=== PATIENT | female | born 1930 | race Caucasian/White ===

== ENCOUNTER → 2017-12-15 | Outpatient (CLI) | payer OTHER | LOC: BMCIMAGING 11:03 | PROVIDERS: ATTEND Internal Medicine | DX: R55 Syncope and collapse (principal); R07.89 Other chest pain ==

== ENCOUNTER 2018-10-10 17:00 | Inpatient (IN) | payer OTHER ==
--- NOTE | 2018-10-10 17:20 | EDPHY ---
H & P Time Seen by Provider: 10/10/18 17:15 HPI/ROS: CHIEF COMPLAINT: Fatigue, weakness, abnormal electrolytes HISTORY OF PRESENT ILLNESS: Patient is an 88-year-old female with a history of lymphoma in remission who presents to the emergency department with abnormal lab studies. Per report, the patient had a routine visit with Dr. Clayton. She has been seen Dr. Clayton since she was diagnosed with lymphoma years ago. Laboratory studies were done as part of the evaluation. She was noted to be hyponatremic and sent to the emergency department. Patient states she also feels fatigued and more tired than normal. She denies chest pain or shortness of breath. No nausea or vomiting. No abdominal pain. REVIEW OF SYSTEMS: 10 systems were reveiwed and are negative with the exception of the elements mentioned in the history of present illness. Past Medical/Surgical History: Includes hypertension, lymphoma, thyroid disease, MALT, cryoglobulinemia Smoking Status: Former smoker Physical Exam: GENERAL: No acute distress, alert. HEENT: Eyes normal to inspection, normal pharynx, no signs of dehydration. NECK: Normal, supple. RESPIRATORY: Clear to auscultation bilaterally, no rales, rhonchi or wheezing. CVS: Regular rate and rhythm, no rubs, murmurs, or gallops. ABDOMEN: Soft, nontender, nondistended, no organomegaly. BACK: Normal to inspection, no CVA tenderness. SKIN: Normal color, no rash, warm, dry. No pallor. EXTREMITIES: No pedal edema, no calf tenderness, no Homans sign or cords, no joint swelling. NEURO/PSYCH: Alert and oriented, normal mood and affect, normal motor sensory exam. Constitutional: Initial Vital Signs Temperature (C) 36.7 C 10/10/18 17:08 Heart Rate 82 10/10/18 17:08 Respiratory Rate 18 10/10/18 17:08 Blood Pressure 193/110 H 10/10/18 17:08 O2 Sat (%) 93 10/10/18 17:08 O2 Delivery Mode Room Air Allergies/Adverse Reactions: atorvastatin calcium [From Lipitor] Allergy (Intermediate, Verified 10/10/18 17: 08) Rash levofloxacin [Levofloxacin] Allergy (Intermediate, Verified 10/10/18 17:08) Rash Sulfa (Sulfonamide Antibiotics) Allergy (Verified 04/03/19 17:08) Home Medications: Medication Instructions Recorded Chlorpheniramine Maleate 12 mg PO HS PRN 10/01/12 [Chlor-Trimeton Allergy] Folic Acid [Folic Acid 1 MG (RX)] 1 mg PO DAILY 10/01/12 Levothyroxine [Synthroid 50 mcg 50 mcg PO DAILY06 10/01/12 (RX)] Methotrexate Sodium [Methotrexate] 10 mg PO PHAM 10/01/12 Nystatin [Mycostatin Oral Liquid 500,000 unit PO QID PRN 10/01/12 (RX)] ONDANSETRON HCL [Zofran 8 mg] 8 mg PO BID 10/01/12 amLODIPine BESYLATE [Norvasc] 10 mg PO DAILY 10/01/12 oxyCODONE/APAP 5/325 [Percocet 1 - 2 tab PO TID PRN 10/01/12 5/325 (RX)] Cephalexin [Keflex (RX)] 500 mg PO BID 11/09/12 Famotidine [Pepcid 20 MG (OTC)] 20 mg PO BID PRN 11/09/12 Furosemide [Lasix] 40 mg PO HS 11/09/12 Furosemide [Lasix] 80 mg PO DAILY 11/09/12 Md Borja 11/0911/09/12 Metoprolol Tartrate [Lopressor] 50 mg PO BID 11/09/12 Software Development Project Manager Completed 11/09/12 11/09/12 Sennosides [Senokot 8.6mg (OTC)] 1 each PO PRN PRN 11/09/12 clonazePAM [Klonopin (RX)] 0.5 - 1 mg PO PRN PRN 11/09/12 Medical Decision Making ED Course/Re-evaluation: In the emergency department discussed possible etiologies with the patient. I answered all her questions. IV was placed. Laboratory studies were obtained. 10/04/2018: Sodium 128, potassium 5.4, chloride 95, bicarb 22, BUN 18, creatinine 1.1, glucose 105 EKG shows normal sinus rhythm, normal rate, normal axis, normal intervals. VPC. LVH the flipped T-waves II, III, aVF, V2-V6. Patient's EKG was abnormal. There is no old EKGs in the system. I was able to obtain an echocardiogram from 2012 The patient's chemistry showed a low sodium 126. Patient's white count is minimally elevated. I discussed the case with Dr. Vences. He will admit the patient. I also discussed the case with Dr. Clayton. Differential Diagnosis: Differential includes but is not limited to electrolyte abnormality, sugar abnormality, dehydration - Data Points Laboratory Results: Laboratory Results 10/10/18 17:30 10/10/18 17:30 10/10/18 10/10/18 10/10/18 17:30 17:30 17:30 WBC RBC Hgb Hct MCV MCH MCHC RDW Plt Count MPV Neut % (Auto) Lymph % (Auto) Darke % (Auto) Eos % (Auto) Baso % (Auto) Nucleat RBC Rel Count Absolute Neuts (auto) Absolute Lymphs (auto) Absolute Monos (auto) Absolute Eos (auto) Absolute Basos (auto) Absolute Nucleated RBC Immature Gran % Immature Gran # PT 13.5 SEC SEC (12.0-15.0) INR 1.07 (0.83-1.16) APTT 28.8 SEC SEC (23.0-38.0) Sodium 126 mEq/L L mEq/L (135-145) Potassium 4.4 mEq/L mEq/L (3.5-5.2) Chloride 93 mEq/L L mEq/L (97-110) Carbon Dioxide 21 mEq/l L mEq/l (22-31) Anion Gap 12 mEq/L mEq/L (6-14) BUN 15 mg/dL mg/dL (7-23) Creatinine 1.1 mg/dL H mg/dL (0.6-1.0) Estimated GFR 47 Glucose 106 mg/dL H mg/dL (70-100) Calcium 10.1 mg/dL mg/dL (8.5-10.4) Total Bilirubin 0.5 mg/dL mg/dL (0.1-1.4) Conjugated Bilirubin 0.5 mg/dL mg/dL (0.0-0.5) Unconjugated Bilirubin 0.0 mg/dL mg/dL (0.0-1.1) AST 22 IU/L IU/L (14-46) ALT 19 IU/L IU/L (9-52) Alkaline Phosphatase 112 IU/L IU/L (38-126) POC Troponin I 0.03 ng/mL ng/mL (0.00-0.08) Total Protein 7.2 g/dL g/dL (6.3-8.2) Albumin 3.9 g/dL g/dL (3.5-5.0) 10/10/18 17:30 WBC 9.75 10^3/uL H 10^3/uL (3.80-9.50) RBC 4.67 10^6/uL 10^6/uL (4.18-5.33) Hgb 12.4 g/dL L g/dL (12.6-16.3) Hct 39.1 % % (38.0-47.0) MCV 83.7 fL fL (81.5-99.8) MCH 26.6 pg L pg (27.9-34.1) MCHC 31.7 g/dL L g/dL (32.4-36.7) RDW 14.8 % % (11.5-15.2) Plt Count 421 10^3/uL H 10^3/uL (150-400) MPV 8.9 fL fL (8.7-11.7) Neut % (Auto) 78.3 % H % (39.3-74.2) Lymph % (Auto) 12.4 % L % (15.0-45.0) Darke % (Auto) 6.8 % % (4.5-13.0) Eos % (Auto) 1.5 % % (0.6-7.6) Baso % (Auto) 0.6 % % (0.3-1.7) Nucleat RBC Rel Count 0.0 % % (0.0-0.2) Absolute Neuts (auto) 7.63 10^3/uL H 10^3/uL (1.70-6.50) Absolute Lymphs (auto) 1.21 10^3/uL 10^3/uL (1.00-3.00) Absolute Monos (auto) 0.66 10^3/uL 10^3/uL (0.30-0.80) Absolute Eos (auto) 0.15 10^3/uL 10^3/uL (0.03-0.40) Absolute Basos (auto) 0.06 10^3/uL 10^3/uL (0.02-0.10) Absolute Nucleated RBC 0.00 10^3/uL 10^3/uL (0-0.01) Immature Gran % 0.4 % % (0.0-1.1) Immature Gran # 0.04 10^3/uL 10^3/uL (0.00-0.10) PT INR APTT Sodium Potassium Chloride Carbon Dioxide Anion Gap BUN Creatinine Estimated GFR Glucose Calcium Total Bilirubin Conjugated Bilirubin Unconjugated Bilirubin AST ALT Alkaline Phosphatase POC Troponin I Total Protein Albumin Point of Care Test Results: Chemistry 10/10/18 17:30 POC Troponin I 0.03 ng/mL ng/mL (0.00-0.08) Departure - Departure Disposition: [facility] [place] Inpatient Acute Clinical Impression: Hyponatremia, Abnormal EKG Condition: Fair Referrals: Moo Carpio MD [Primary Care Provider] - As per Instructions
[2018-10-10 17:39] LABS: PLATELET COUNT 421 10^3/uL (150-400)
[2018-10-10 17:49] LABS: INR 1.07 (0.83-1.16); PROTIME(PATIENT) 13.5 SEC (12.0-15.0)
[2018-10-10] MEDS ORDERED: FLUORESCEIN SODIUM 1 MG STRIP OP ONE (18:39)
[2018-10-10] MEDS ORDERED: PROPARACAINE 0.5% 15 ML OPHT DROP ONE (18:39)
--- NOTE | 2018-10-10 19:08 | PDGENHP ---
History and Physical - Chief Complaint Nausea - History of Present Illness Patient is an 88-year-old female with past medical history of malt lymphoma, with associated myeloproliferative glomerular nephritic syndrome, Sjogren's, hypertension, hypothyroid who presented the emergency room complaints of nausea and weakness. She saw Dr. Clayton who she follows for her MPGN and he jeff labs which showed a sodium of 128. He referred her to the emergency room for further evaluation of her hyponatremia. She says that her symptoms have been ongoing for about a week now. She says she has been drinking a lot of water but not eating very much food. She denied any nausea or vomiting. She does say few she feels more weak than normal, and her stomach feels mildly queasy. She had a few episodes of loose stools but no micky diarrhea. She denied any dysuria or symptoms of a urinary tract infection. She denied any fevers chills chest pain cough or other symptoms. History Information - Allergies/Home Medication List Allergies/Adverse Reactions: atorvastatin calcium [From Lipitor] Allergy (Intermediate, Verified 10/10/18 17: 08) Rash levofloxacin [Levofloxacin] Allergy (Intermediate, Verified 10/10/18 17:08) Rash Sulfa (Sulfonamide Antibiotics) Allergy (Verified 10/10/18 17:08) Home Medications: Chlorpheniramine Maleate [Chlor-Trimeton Allergy] 12 mg PO HS PRN 10/01/12 [ Last Taken 09/30/12] Folic Acid [Folic Acid 1 MG (RX)] 1 mg PO DAILY 10/01/12 [Last Taken 11/09/12] Levothyroxine [Synthroid 50 mcg (RX)] 50 mcg PO DAILY06 10/01/12 [Last Taken 09/19] Methotrexate Sodium [Methotrexate] 10 mg PO PHAM 10/01/12 [Last Taken 11/04/12] Nystatin [Mycostatin Oral Liquid (RX)] 500,000 unit PO QID PRN 10/01/12 [Last Taken Unknown] ONDANSETRON HCL [Zofran 8 mg] 8 mg PO BID 10/01/12 [Last Taken 11/09/12] amLODIPine BESYLATE [Norvasc] 10 mg PO DAILY 10/01/12 [Last Taken 11/08/12] oxyCODONE/APAP 5/325 [Percocet 5/325 (RX)] 1 - 2 tab PO TID PRN 10/01/12 [Last Taken 11/09/12] Cephalexin [Keflex (RX)] 500 mg PO BID 11/09/12 [Last Taken 11/09/12] Famotidine [Pepcid 20 MG (OTC)] 20 mg PO BID PRN 11/09/12 [Last Taken Unknown] Furosemide [Lasix] 40 mg PO HS 11/09/12 [Last Taken 11/08/12] Furosemide [Lasix] 80 mg PO DAILY 11/09/12 [Last Taken 11/09/12] Md Borja 11/0911/09/12 [Last Taken Unknown] Metoprolol Tartrate [Lopressor] 50 mg PO BID 11/09/12 [Last Taken 11/09/12] Manufacturers Service Representative Completed 11/09/12 11/09/12 [Last Taken Unknown] Sennosides [Senokot 8.6mg (OTC)] 1 each PO PRN PRN 11/09/12 [Last Taken Unknown] clonazePAM [Klonopin (RX)] 0.5 - 1 mg PO PRN PRN 11/09/12 [Last Taken 11/08/12] I have personally reviewed and updated: family history, medical history, social history, surgical history - Past Medical History Additional medical history: Sjogren's, myeloproliferative glomerular nephritic syndrome, lymphoma in remission, hypertension, hypothyroid - Surgical History Additional surgical history: Hysterectomy thyroid surgery - Family History Positive for: non-pertinent - Social History Smoking Status: Former smoker Review of Systems Review of Systems: ROS: 10pt was reviewed & negative except for what was stated in HPI & below Physical Exam Physical Exam: Temp Pulse Resp BP Pulse Ox 36.7 C 82 18 193/110 H 93 10/10/18 17:08 10/10/18 17:08 10/10/18 17:08 10/10/18 17:08 10/10/18 17:08 Constitutional: no apparent distress, appears nourished, not in pain Eyes: PERRL, anicteric sclera, EOMI Ears, Nose, Mouth, Throat: moist mucous membranes, hearing normal, ears appear normal, no oral mucosal ulcers Cardiovascular: regular rate and rhythym, no murmur, rub, or gallop, No edema Respiratory: no respiratory distress, no rales or rhonchi, clear to auscultation Gastrointestinal: normoactive bowel sounds, soft, non-tender abdomen, no palpable masses Genitourinary: no bladder fullness, no bladder tenderness Skin: warm, normal color, no rashes or abrasions, no fluctuance, no induration, No mottled Musculoskeletal: full muscle strength, no muscle tenderness, normal joint ROM, no joint effusions Psychiatric: interacting appropriately, not anxious, not encephalopathic, thought process linear Lymph, Heme, Immunologic: no cervical LAD, no supraclavicular LAD Lab Data & Imaging Review 10/10/18 17:30 10/10/18 17:30 WBC 9.75 10^3/uL (3.80-9.50) H 10/10/18 17:30 RBC 4.67 10^6/uL (4.18-5.33) 10/10/18 17:30 Hgb 12.4 g/dL (12.6-16.3) L 10/10/18 17:30 Hct 39.1 % (38.0-47.0) 10/10/18 17:30 MCV 83.7 fL (81.5-99.8) 10/10/18 17:30 MCH 26.6 pg (27.9-34.1) L 10/10/18 17:30 MCHC 31.7 g/dL (32.4-36.7) L 10/10/18 17:30 RDW 14.8 % (11.5-15.2) 10/10/18 17:30 Plt Count 421 10^3/uL (150-400) H 10/10/18 17:30 MPV 8.9 fL (8.7-11.7) 10/10/18 17:30 Neut % (Auto) 78.3 % (39.3-74.2) H 10/10/18 17:30 Lymph % (Auto) 12.4 % (15.0-45.0) L 10/10/18 17:30 Liberty % (Auto) 6.8 % (4.5-13.0) 10/10/18 17:30 Eos % (Auto) 1.5 % (0.6-7.6) 10/10/18 17:30 Baso % (Auto) 0.6 % (0.3-1.7) 10/10/18 17:30 Nucleat RBC Rel Count 0.0 % (0.0-0.2) 10/10/18 17:30 Absolute Neuts (auto) 7.63 10^3/uL (1.70-6.50) H 10/10/18 17:30 Absolute Lymphs (auto) 1.21 10^3/uL (1.00-3.00) 10/10/18 17:30 Absolute Monos (auto) 0.66 10^3/uL (0.30-0.80) 10/10/18 17:30 Absolute Eos (auto) 0.15 10^3/uL (0.03-0.40) 10/10/18 17:30 Absolute Basos (auto) 0.06 10^3/uL (0.02-0.10) 10/10/18 17:30 Absolute Nucleated RBC 0.00 10^3/uL (0-0.01) 10/10/18 17:30 Immature Gran % 0.4 % (0.0-1.1) 10/10/18 17:30 Immature Gran # 0.04 10^3/uL (0.00-0.10) 10/10/18 17:30 PT 13.5 SEC (12.0-15.0) 10/10/18 17:30 INR 1.07 (0.83-1.16) 10/10/18 17:30 APTT 28.8 SEC (23.0-38.0) 10/10/18 17:30 Sodium 126 mEq/L (135-145) L 10/10/18 17:30 Potassium 4.4 mEq/L (3.5-5.2) 10/10/18 17:30 Chloride 93 mEq/L (97-110) L 10/10/18 17:30 Carbon Dioxide 21 mEq/l (22-31) L 10/10/18 17:30 Anion Gap 12 mEq/L (6-14) 10/10/18 17:30 BUN 15 mg/dL (7-23) 10/10/18 17:30 Creatinine 1.1 mg/dL (0.6-1.0) H 10/10/18 17:30 Estimated GFR 47 10/10/18 17:30 Glucose 106 mg/dL (70-100) H 10/10/18 17:30 Calcium 10.1 mg/dL (8.5-10.4) 10/10/18 17:30 Total Bilirubin 0.5 mg/dL (0.1-1.4) 10/10/18 17:30 Conjugated Bilirubin 0.5 mg/dL (0.0-0.5) 10/10/18 17:30 Unconjugated Bilirubin 0.0 mg/dL (0.0-1.1) 10/10/18 17:30 AST 22 IU/L (14-46) 10/10/18 17:30 ALT 19 IU/L (9-52) 10/10/18 17:30 Alkaline Phosphatase 112 IU/L (38-126) 10/10/18 17:30 POC Troponin I 0.04 ng/mL (0.00-0.08) 10/10/18 18:21 Total Protein 7.2 g/dL (6.3-8.2) 10/10/18 17:30 Albumin 3.9 g/dL (3.5-5.0) 10/10/18 17:30 Assessment & Plan Assessment: Hyponatremia (Acute)-sodium is 126 today. She appears euvolemic to me. She says she has been pushing a lot of free water. I suspect this may be related to toast potomania versus hypovolemic hyponatremia -check urine sodium -check urine osmolality -serum osmolarity -gentle hydration with intravenous saline -recheck sodium in 6 hr Hypertensive urgency- systolic blood pressure 190 in the emergency room. Patient does not know all of her meds but does endorse taking lisinopril although she did not know the dose. Will give a dose of IV hydralazine now. -IV hydralazine -if not able to control will start cardene gtt. weakness- suspect this is related to her hyponatremia. PT OT consulted. Correct sodium as above. Hypothyroid- once dose of Synthroid confirmed will restart this. -TSH pending -resume home Synthroid Sjogren's- Biotene p.r.n. CKD- creatinine tonight about 1.1. I spoke with her stoker erector and servicer Dr. Clayton who feels that this is about her baseline and there is no need for acute intervention aside from hydration. Lymphoma- history of MALToma in remission. Prophylaxis- SCDs and heparin Fluids- intravenous saline Electrolytes- hyponatremia Nutrition- regular diet Cor- DNR Dispo- observation for hyponatremia
[2018-10-10] MEDS ORDERED: ONDANSETRON DISINTEGRATING 4 MG TAB PO PRN (19:17)
[2018-10-10] MEDS ORDERED: ACETAMINOPHEN 325 MG TAB PO PRN (19:17)
[2018-10-10] MEDS ORDERED: ONDANSETRON 4 MG/2 ML VIAL IVP PRN (19:17)
[2018-10-10] MEDS ORDERED: hydrALAZINE 20 MG/ML VIAL IVP ONE (19:20)
[2018-10-10] MEDS ORDERED: NS 1,000 ML IV SCH (19:30)
--- NOTE | 2018-10-10 20:25 | CPEKG ---
Test Reason : OPEN Blood Pressure : / mmHG Vent. Rate : 084 BPM Atrial Rate : 086 BPM P-R Int : 136 ms QRS Dur : 091 ms QT Int : 410 ms P-R-T Axes : 090 065 234 degrees QTc Int : 485 ms Sinus rhythm Multiple premature complexes, vent & supraven Probable LVH with secondary repol abnrm Abnormal T, probable ischemia, lateral leads Confirmed by Katiuska Morgan ([id number]) on 10/10/2018 8:25:05 PM Referred By: KATIUSKA MORGAN Confirmed By:Katiuska Morgan
[2018-10-10] MEDS ORDERED: NYSTATIN SUSP 500000 UNIT/5 ML UD LIQ PO PRN (23:20)
[2018-10-10] MEDS ORDERED: SENNOSIDES 1 TAB PO PRN (23:20)
[2018-10-10] MEDS ORDERED: clonazePAM 0.5 MG TAB PO PRN (23:20)
[2018-10-10] MEDS: HEPARIN 5,000 UNIT/0.5 ML INJ SC SCH (23:26)
[2018-10-10] MEDS ORDERED: OXYCODONE/APAP 5/325 TAB PO PRN (23:37)
[2018-10-10] MEDS: OXYCODONE/APAP 5/325 TAB PO PRN (23:56)
[2018-10-11 05:38] LABS: PLATELET COUNT 323 10^3/uL (150-400)
[2018-10-11] MEDS: HEPARIN 5,000 UNIT/0.5 ML INJ SC SCH ×3 (06:32→21:08)
[2018-10-11] MEDS: LEVOTHYROXINE 50 MCG TAB PO SCH (06:32)
[2018-10-11] MEDS: LISINOPRIL 5 MG TAB PO SCH ×2 (06:47→06:48)
[2018-10-11] MEDS ORDERED: hydrALAZINE 20 MG/ML VIAL IVP PRN (11:03)
--- NOTE | 2018-10-11 11:42 | HOSPPROG ---
Hospitalist Progress Note Assessment/Plan: Hyponatremia (Acute)-sodium 126 on admission. She says she has been pushing a lot of free water. - Urine Na 46, Serum Osm 260 consistent with hypotonic hyponatremia - currently receiving gentle hydration with intravenous saline, Na improved to 130 this AM - Will repeat Na this afternoon and tomorrow AM - Nephrology consulted this morning Hypertensive urgency- systolic blood pressure 190 in the emergency room. - S/p IV hydralazine on admission - Restarted on home Lisinopril 2.5 mg BID - Also ordered PRN Hydralazine for SBP >180 weakness- suspect this is related to her hyponatremia also in setting of recent URI - PT OT consulted. -Correct sodium as above. Hypothyroid -resume home Synthroid Sjogren's - Biotene p.r.n. CKD - creatinine 1.1 on admission, improved to 0.9 this AM s/p IVF - Nephrology consult as above Lymphoma - history of MALToma in remission. Prophylaxis- SCDs and heparin Fluids- intravenous saline Electrolytes- hyponatremia Nutrition- regular diet Cor- DNR Dispo- Pending continued improvement in Na Subjective: Pt reports feeling weak this AM Objective: Vital Signs Temp Pulse Resp BP Pulse Ox 36.6 C 75 16 168/88 H 99 10/11/18 07:37 10/11/18 07:37 10/11/18 07:37 10/11/18 07:37 10/11/18 07:37 Laboratory Results 10/11/18 04:30 10/11/18 04:30 10/10/18 10/11/18 10/12/18 05:59 05:59 05:59 Intake Total 730 Output Total 350 100 Balance 380 -100 PT 13.5 SEC (12.0-15.0) 10/10/18 17:30 INR 1.07 (0.83-1.16) 10/10/18 17:30 - Physical Exam Constitutional: chronically ill appearing Eyes: PERRL Ears, Nose, Mouth, Throat: dry mucous membranes Cardiovascular: regular rate and rhythym, No edema Respiratory: no respiratory distress Gastrointestinal: soft, non-tender abdomen Skin: warm Musculoskeletal: full muscle strength Neurologic: AAOx3 Psychiatric: anxious ICD10 Worksheet Patient Problems: Problems Problem Status Onset Abnormal EKG Acute Hyponatremia 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
--- NOTE | 2018-10-11 13:56 | GCON ---
[f rep st] CONSULTATION DATE OF CONSULTATION: 10/11/2018 REASON FOR CONSULTATION: Opinion regarding hyponatremia. HISTORY OF PRESENT ILLNESS: The patient is a very pleasant 88-year-old female who sees Dr. Clayton for chronic kidney disease, stage 3. Baseline serum creatinine tends to be around 1 to 1.1. She wa s in her usual state of health until a couple of weeks ago when she began having an upper respiratory tract infection/bronchitis. Subsequently, did not get significantly better, she had some nausea, no vomiting, no chest pain, but did have shortness of breath and cough. No hemoptysis, hematemesis, ep istaxis, abdominal pain, diarrhea, constipation, melena, hematochezia, blurry vision, double vision, headache, orthopnea, paroxysmal nocturnal dyspnea, palpitations, or syncope. She did have some fatig ue. The patient was to see Dr. Clayton this past week, she had some laboratory drawn and her serum sodi um was low at 126. This was repeated and it was again 126. She was admitted to the hospital for fur ther evaluation and management. PAST MEDICAL HISTORY: Significant for: 1. Stage 3 chronic kidney disease, baseline serum creatinine between 1 and 1.1. 2. 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 3. History of cryoglobulinemia. 4. MALT lymphoma treated with rituximab. 5. Interstitial nephritis. 6. Status post hysterectomy. 7. Status post cholecystectomy. 8. Rheumatoid arthritis. 9. Osteoarthritis. 10. History of Sjogren syndrome. 11. History of partial thyroidectomy. 12. Hypothyroidism. ALLERGIES: Sulfa. FAMILY HISTORY: Noncontributory. SOCIAL HISTORY: She does not use tobacco. She drinks 2 or 3 alcoholic beverages a week. She is mar ried, her son is at the bedside as well. REVIEW OF SYSTEMS: A complete 12-point review of systems was performed with pertinent positives and negatives as per the previous sections. PHYSICAL EXAMINATION: VITAL SIGNS: Blood pressure 168/88, pulse 75, respirations 16, temperature 36 .6 degrees. Urine output 350 cc so far today. GENERAL: She is awake, alert. She is cooperative. She is cachectic. HEENT: Pupils are reactive to light. Extraocular movements are intact. Mucous m embranes are somewhat dry. NECK: No lymphadenopathy or thyromegaly. HEART: Regular with PVCs. No rub. No S3. LUNGS: No rales, rhonchi, or wheezes. ABDOMEN: Flat. Bowel sounds are positive. S oft, nontender, nondistended. EXTREMITIES: No edema cyanosis or clubbing. NEUROLOGIC: No asterixi s. SKIN: No unusual rashes or lesions. LYMPH: No palpable lymphadenopathy or lymphedema. MUSCULO SKELETAL: No effusions or tenderness. LABORATORY: Serum sodium on admission was 126, currently 130, her rate of rise is appropriate. Pota ssium 3.8, chloride 102, CO2 20, BUN 14, creatinine 0.9, glucose 102, calcium 9.1, phosphorus 3.4, T 22, albumin 3.9, magnesium 1.6. On 09/20/2017, her serum sodium was 135. Home blood pressures ten d to be in the 110-130 over 60s and 70s. Her serum osmolality is 266. Troponin I was negative at 0. 04. Urine osmolality 312, urine sodium 43, serum osmolality 266. IMPRESSION: 1. Hyponatremia. It appears that this is syndrome of inappropriate antidiuretic hormone secretion, likely due to a combination of her bronchitis and she was having some nausea as well. 2. Chronic kidney disease, stage 3, due to nephrosclerosis of aging, as well as membranoproliferativ e glomerulonephritis and inflammatory arthritis. 3. Hypertension, not well controlled here, but her blood pressures at home have been in the 110s to 130s over 60s and 70s. She has been on lisinopril 2.5 mg twice daily. Her says that she has been having some difficulty with hyperkalemia recently. I think we will switch her to amlodipine 2. 5 mg once daily. 4. Hyponatremia, rate of rise is appropriate, I think we will back off a bit on her intravenous flui ds and go from 75 down to 50 cc/hour. Continue to check her serum sodiums as is. Maximum rate of ri se in 24 hours is 8 mEq. Thank you for allowing me to participate in the care of your patient. If there are any questions, pl ease do not hesitate to contact us. We will be following along with you. /[id number]/MODL
--- NOTE | 2018-10-11 14:17 | ASMTCMCOM ---
CM Note CM Note Notes: Pt is a 88 yo F presents with weakness. Pt care discussed in rounds. Pt is DNR. Lives with and has supportive son. At this time PT/OT have cleared pt to be discharged home independently. Pt follows Dr. Clayton for stage 3 kidney disease. Has history of various cancers and lymphoma. Discharge needs TBD at this time. CM to follow. Plan: TBD Date Signed: 10/11/2018 02:17 PM Electronically Signed By:FLEX Knox
--- NOTE | 2018-10-11 18:08 | PDMN ---
Medical Necessity Medical necessity: [facility] General Admission: 88 yo w/ nausea and weakness. Eval revealed hyponatremia w/ Na 126 and hypertensive urgency w/ SBP 190. Initially OBS for workup/tx but change to IP status @1139 per MD order as pt cont to be hypotnatremic beyond OBS care, still requiring IVF, and cont to c/ o weakness. Neph consulted. [place] [facility] [place] for [place] admit w/ severe electrolyte abnormality w/ Na<130. Hx malt lymphoma, with associated myeloproliferative glomerular nephritic syndrome, Sjogren's, HTN, hypothyroid
[2018-10-11] MEDS ORDERED: MIRTAZAPINE 15 MG TAB PO SCH (21:00)
[2018-10-11] MEDS ORDERED: LISINOPRIL 5 MG TAB PO SCH (21:00)
[2018-10-11] MEDS ORDERED: LISINOPRIL 2.5 MG TAB PO SCH (21:00)
[2018-10-11] MEDS: OXYCODONE/APAP 5/325 TAB PO PRN (21:08)
[2018-10-12] MEDS: LEVOTHYROXINE 50 MCG TAB PO SCH (06:47)
[2018-10-12] MEDS: HEPARIN 5,000 UNIT/0.5 ML INJ SC SCH (06:47)
[2018-10-12] MEDS ORDERED: CALCITRIOL 0.25 MCG CAP PO SCH (08:00)
[2018-10-12 08:05] VITALS: BP 174/93
--- NOTE | 2018-10-12 09:05 | SOAPPROG ---
SOAP Progress Note Assessment/Plan: Assessment: hyponatremia, responding nicely to fluids sodium approaching her baseline in mid 30's BP and UOP good Plan: DC IVF, home when OK with others has appt scheduled with Dr. Clayton increase sodium in diet a bit repeat renal panel early next week and have it sent to Dr. Clayton 10/12/18 09:02 Subjective: spirits good at bedside would like to go home no cp sob nausea or vomiting slept well last night no pain or anorexia Objective: Vital Signs Temp Pulse Resp BP Pulse Ox 36.4 C 72 18 174/93 H 91 L 10/12/18 08:00 10/12/18 08:00 10/12/18 08:00 10/12/18 08:40 10/12/18 08:00 Laboratory Results 10/12/18 04:57 10/11/18 10/12/18 10/13/18 05:59 05:59 05:59 Intake Total 450 Output Total 1400 Balance -950 PT 13.5 SEC (12.0-15.0) 10/10/18 17:30 INR 1.07 (0.83-1.16) 10/10/18 17:30 Physical Exam - Physical Exam General Appearance: alert, thin Neck: normal inspection Respiratory: No rhonchi, No wheezing Cardiac/Chest: regular rate, rhythm, systolic murmur, No edema, No friction rub Abdomen: normal bowel sounds, non-tender, soft Extremities: No swelling Neuro/Psych: alert, normal mood/affect, oriented x 3 ICD10 Worksheet Patient Problems: Problems Problem Status Onset Abnormal EKG Acute Hyponatremia 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
--- NOTE | 2018-10-12 09:59 | ASDISCHSUM ---
Discharge Information Plan Status:Home with No Needs Medically Cleared to Leave:10/12/2018 Discharge Date:10/12/2018 CM D/C Disposition:Home, Routine, Self-Care ADT D/C Disposition: Projected Discharge Date:10/12/2018 Transportation at D/C:Family Discharge Delay Reason: Follow-Up Date:10/12/2018 Discharge Slot: Final Diagnosis: Placement Information Patient Contact Information Contact Name:ASHER Relationship: Address:[address] [place] [address] Work Phone: City:[employer] [facility] Phone: State/Zip Code:[place] [address] Email: Financial Information Financial Class:Medicare Advantage Plans Primary Plan Desc:[place] MED[employer]ARE ADV Primary Plan Number:[id number] Secondary Plan Desc: Secondary Plan Number: Assessment Information LACE LACE Length of stay for Answers: Less than 1 day current admission Acuity / Level of Answers: Yes Care: Did the patient have an inpatient admission? Comorbidities - select Answers: Any tumor (including all that apply lymphoma or leukemia) Other Notes: HTN; Thyroid disease # of Emergency department Answers: 1-2 visits in the last 6 months Score: 7 Date Signed: 10/12/2018 09:58 AM Electronically Signed By:FLEX Knox [facility] CM Progress Note CM Note CM Note Notes: Pt is a 88 yo F presents with weakness. Pt care discussed in rounds. Pt is DNR. Lives with and has supportive son. At this time PT/OT have cleared pt to be discharged home independently. Pt follows Dr. Clayton for stage 3 kidney disease. Has history of various cancers and lymphoma. Discharge needs TBD at this time. CM to follow. Plan: TBD Date Signed: 10/11/2018 02:17 PM Electronically Signed By:FLEX Knox Case Management Discharge Plan Note Case Management Discharge Discharge Order Complete? Answers: Yes Patient to Obtain Answers: via Family Medications Transportation Arranged Answers: Family/Friends Family Notified Answers: Yes Discharge Comments Notes: CM met with pt and his . PT/OT cleared pt to go home. CM offered meals on wheels and they denied. Pt arranged a ride for this afternoon. No concerns obtaining meds. No other needs identified at this time. Pt to be discharged independently. Intervention Information
--- NOTE | 2018-10-12 17:39 | PDDCSUM ---
Discharge Summary Discharge Summary: Date of Admission: 10/11/2018 Date of Discharge: 10/12/2018 Consults: Nephrology Followup: Nephrology, Dr. Clayton Hospital Course Problem List: Hyponatremia (Acute)-sodium 126 on admission. She says she has been pushing a lot of free water. - Urine Na 46, Serum Osm 260 consistent with hypotonic hyponatremia - S/p gentle hydration with intravenous saline, Na improved to 133 prior to discharge - Will repeat Na this afternoon and tomorrow AM - Nephrology consulted who recommend close followup with Dr. Clayton with repeat labs early next week to ensure continued improvement Hypertensive urgency- systolic blood pressure 190 in the emergency room. - S/p IV hydralazine on admission - Restarted on home Lisinopril 2.5 mg BID, switched to Amlodipine 2.5 mg qd due to hx of hyperkalemia weakness- suspect this is related to her hyponatremia also in setting of recent URI - PT OT consulted- recommend home -Corrected sodium as above. Hypothyroid -resume home Synthroid Sjogren's - Biotene p.r.n. CKD - creatinine 1.1 on admission, improved to 0.9 s/p IVF - Nephrology consult as above Lymphoma - history of MALToma in remission. Time spent on discharge was >35 minutes with >50% of time spent on patient education and counseling.
== END 2018-10-12 13:49 | disposition home or self-care (01) | DRG 641 ==
LOC: F1N 21:23 → OBSVTOIN 10-11 11:39
PROVIDERS: ADMIT Internal Medicine; ATTEND Internal Medicine
DX: E87.1 Hypo-osmolality and hyponatremia (principal); I16.0 Hypertensive urgency; N18.3 Chronic kidney disease, stage 3 (moderate); N05.8 Unspecified nephritic syndrome with other morphologic changes; E03.9 Hypothyroidism, unspecified; M35.00 Sjogren syndrome, unspecified; C88.4 Extranodal marginal zone B-cell lymphoma of mucosa-associated lymphoid tissue [MALT-lymphoma]; Z87.891 Personal history of nicotine dependence
CPT/HCPCS: 84484-ER; 96374; 97161-GP; 97165-GO; G0378; J0360; J1644